=== PATIENT | male | born 1940 | race Caucasian/White ===

== ENCOUNTER 2024-05-27 | Outpatient (REF) | payer OTHER, SELFPAY ==
--- NOTE | ~2024-05-27 | XR_ITS ---
EXAMINATION: XR HIP 2 OR MORE VIEWS LEFT HISTORY: M25.559 - Pain in unspecified hip COMPARISON: There are no prior studies for comparison. FINDINGS: A single AP view of the pelvis and two views of the left hip are submitted. The patient is status post left total hip arthroplasty. The orthopedic elements are in anatomic alignment. There is no radiographic evidence of loosening. There is no fracture or dislocation. There are vascular calcifications. XR/XR hip LT min 2V IMPRESSION: Status post left total hip arthroplasty. Electronically signed by: Kp Sam MD 05/27/2024 01:25 PM EDT
--- OUTSIDE RECORDS SUMMARY | 2024-08-06 14:23 | XMS_ITS | Encounter Summary ---
Author Organization [facility] Address [address] [place] [address] Care Team Providers Care Bridge Mechanic Name Role Phone Ailyn Willams MD Primary Care Pr ovider Encounter Details Date Type Department Care Team (Late st Contact Info) Description 05/16/2021 Scanned Document [facility] [address] [facility] [address] [place] [address] Aixa Beckett, PAJatinC [address] [place] [address] [address] [place] [address] Social History Tobacco Use Types Packs/Day Years [...] on filedocumented in this encounter Care Teams Bridge Mechanic Relationship Specialty Start Date End Date Ailyn Willams MD [address] [place] [address] PCP - General 05/15/21 documented as of this encounter
== END 2024-05-27 00:01 | disposition home or self-care (01) ==
LOC: HO.HOSX
PROVIDERS: Visit Provider Physician Assistant
DX: M25.552 Pain in left hip (principal); Z96.642 Presence of left artificial hip joint
CPT/HCPCS: 73502; 99202

== ENCOUNTER 2024-05-27 09:11 | Outpatient (AMB) | payer OTHER, SELFPAY ==
--- OUTSIDE RECORDS SUMMARY | 2024-05-27 10:11 | XMS_ITS ---
Author Name [facility]ISP Organization Unknown Results Test Name/Text Value Interpretation Date Range Source GLUCOSE BLDC GLUCOMTR [facility] 267mg/dL Above high normal [id number] 70 - 199 [facility] GLUCOSE BLDC GLUCOMTR [facility] 372mg/dL Above high normal [id number] 70 - 199 [facility] OSMOLALITY SERPL 287mOsm/kg Normal [id number] 275 - 295 [facility] CREAT SERPL [facility] 1.1mg/dL Normal [id number] 0.7 - 1.3 [facility] CALCIUM SERPL [facility] 9.6mg/dL Normal [id number] 8.4 - 10 .2 [facility] SODIUM SERPL [facility] 135mmol/L Normal [id number] 135 - 145 [facility] ANION GAP SERPL [facility] 6mmol/L Normal [id number] 5 - 14 [facility] Glomerular filtration rate/1.73 sq M. predicted 66 Normal [id number] 60 - [facility] HCO3 SER [facility]NC 30mmol/L Normal [id number] 24 - 32 [facility] GLUCOSE SERPL [facility] 314mg/dL Above high normal [id number] 70 - 199 [facility] BUN SERPL [facility] 27mg/dL Above high normal [id number] 9 - 20 [facility] CHLORIDE SERPL [facility] 99mmol/L Normal [id number] 98 - 10 7 [facility] POTASSIUM SERPL [facility] 4.5mmol/L Normal [id number] 3.5 - 5.1 [facility] SODIUM SERPL [facility] 133mmol/L Below low normal [id number] 13 5 - 145 [facility] Troponin I SerPl HS-mCnc 18ng/L Normal [id number] 0 - 20 [facility] AMYLASE SERPL [facility] 30U/L Normal [id number] 29 - 103 [facility] LDH SERPL L TO P [facility]NC 143U/L Normal [id number] 125 - 220 [facility] AST SERPL [facility] 18U/L Normal [id number] 5 - 40 [facility] ALP SERPL-[facility]NC 61U/L Normal [id number] 34 - 104 [facility] ALT SERPL [facility] 10U/L Normal [id number] 7 - [facility] 1.3mg/dL Normal [id number] 0.7 - 1.3 [facility] CALCIUM SERPL [facility] 9.5mg/dL Normal [id number] 8.4 - 10 .2 [facility] SODIUM SERPL SC[facility] 130mmol/L Below low normal [id number] 13 5 - 145 [facility] ANION GAP SERPL [facility] 9mmol/L Normal [id number] 5 - 14 [facility] Glomerular filtration rate/1.73 sq M. predicted 54 Below low normal [id number] 60 - [facility] HCO3 SER SCNC 28mmol/L Normal [id number] 24 - 32 [facility] GLUCOSE SERPL MCNC 246mg/dL Above high normal [id number] 70 - 199 [facility] BUN SERPL [facility] 31mg/dL Above high normal [id number] 9 - 20 [facility] CHLORIDE SERPL [facility] 93mmol/L Below low normal [id number] 98 - 107 [facility] POTASSIUM SERPL [facility] 4.2mmol/L Normal [id number] 3.5 - 5.1 [facility] BILIRUB SERPL [facility] 0.5mg/dL Normal [id number] 0.3 - 1 [facility] BILIRUB DIRECT SERPL [facility] 0.1mg/dL Normal [id number] 0 - 0.2 [facility] PLATELET NO. BLD AUTO 207K/uL Normal [id number] 150 - 450 [facility] RBC NO. BLD AUTO 3.67M/uL Below low normal [id number] 4.7 - 6 [facility] NUCLEATED RBC 0% Normal [id number] 0 - 1 [facility] LYMPHOCYTES NO. BLD AUTO 0.3K/uL Below low normal [id number] 1 - 3.2 [facility] EOSINOPHIL NO. BLD AUTO 0K/uL Normal [id number] 0 - 0.5 [facility] MCH RBC QN AUTO 28.6pg Normal [id number] 25 - 33 [facility] MCHC RBC AUTO MCNC 32g/dL Normal [id number] 32 - 36 [facility] MONOCYTES NFR BLD AUTO 5.8% Normal [id number] 2 - 12 [facility] IMMATURE GRANULOCYTE, ABSOLUTE 0.02k/uL Normal [id number] - 0.1 [facility] LYMPHOCYTES NFR BLD AUTO 3.8% Below low normal [id number] 20 - 48 [facility] EOSINOPHIL NFR BLD AUTO 0% Normal 0 - 6 [facility] HGB BLD [facility] 10.5g/dL Below low normal [id number] 13.5 - 18 [facility] NEUTROPHILS NO. BLD AUTO 6.2K/uL Normal [id number] 1.8 - 7.8 [facility] WBC NO. BLD AUTO 6.9K/uL Normal 4 - 10.5 [facility] BASOPHILS NFR BLD AUTO 0.1% Normal 0 - 2 [facility] MONOCYTES NO. BLD AUTO 0.4K/uL Normal 0 - 0.8 [facility] MCV RBC AUTO 89.4fL Normal 78 - 100 [facility] NEUTROPHILS NFR BLD AUTO 90% Above high normal [id number] 44 - 74 [facility] IMMATURE GRANULOCYTE, PERCENT 0.3% Normal 0 - 1 [facility] BASOPHILS IN BLOOD BY AUTOMATED COUNT 0K/uL Normal 0 - 0.2 [facility] PMV BLD AUTO 10.1fL Normal [id number] 7.4 - 11.4 [facility] RDW RBC AUTO RTO 13.8% Normal 12.1 - 17. 7 [facility] HCT VFR BLD AUTO 32.8% Below low normal [id number] 40 - 54 [facility] LACTATE SERPL [facility]NC 1.6mmol/L Normal 0.5 - 2 [facility] LDH SERPL L TO P [facility]NC 137U/L Normal 125 - 220 [facility] AST SERPL [facility] 15U/L Normal 5 - 40 [facility] ALP SERPL-CCNC 75U/L Normal 34 - 104 [facility] ALT SERPL [facility] 10U/L Normal 7 - 52 [facility] BILIRUB SERPL [facility] 0.3mg/dL Normal 0.3 - 1 [facility] BILIRUB DIRECT SERPL [facility]NC 0.1mg/dL Normal 0 - 0.2 [facility] AMYLASE SERPL [facility] 47U/L Normal 29 - 103 [facility] LIPASE SERPL [facility] 19U/L Normal 11 - 82 [facility] CREAT SERPL [facility] 1.2mg/dL Normal 0.7 - 1.3 [facility] CALCIUM SERPL [facility] 9.8mg/dL Normal 8.4 - 10 .2 [facility] SODIUM SERPL SCNC 138mmol/L Normal 135 - 145 [facility] ANION GAP SERPL SC[facility] 7mmol/L Normal 5 - 14 [facility] Glomerular filtration rate/1.73 sq M. predicted 59 Below low normal 60 - [facility] HCO3 SER SCNC 30mmol/L Normal 24 - 32 [facility] GLUCOSE SERPL MCNC 222mg/dL Above high normal 70 - 199 [facility] BUN SERPL MCNC 24mg/dL Above high normal 9 - 20 [facility] CHLORIDE SERPL SCNC 101mmol/L Normal 98 - 10 7 [facility] POTASSIUM SERPL SCNC 4.3mmol/L Normal 3.5 - 5.1 [facility] PLATELET NO. BLD AUTO 320K/uL Normal 150 - 450 [facility] RBC NO. BLD AUTO 3.39M/uL Below low normal 4.7 - 6 [facility] NUCLEATED RBC 0% Normal 0 - 1 [facility] LYMPHOCYTES NO. BLD AUTO 1K/uL Normal 1 - 3.2 [facility] EOSINOPHIL NO. BLD AUTO 0.2K/uL Normal 0 - 0.5 [facility] MCH RBC QN AUTO 28.6pg Normal 25 - 33 [facility] MCHC RBC AUTO MCNC 31.4g/dL Below low normal 3 2 - 36 [facility] MONOCYTES NFR BLD AUTO 9.6% Normal 2 - 12 [facility] IMMATURE GRANULOCYTE, ABSOLUTE 0.02k/uL Normal [id number] - 0.1 [facility] LYMPHOCYTES NFR BLD AUTO 19.7% Below low normal 20 - 48 [facility] EOSINOPHIL NFR BLD AUTO 3.2% Normal 0 - 6 [facility] HGB BLD [facility] 9.7g/dL Below low normal 13.5 - 18 [facility] NEUTROPHILS NO. BLD AUTO 3.3K/uL Normal 1.8 - 7.8 [facility] WBC NO. BLD AUTO 5K/uL Normal 4 - 10.5 [facility] BASOPHILS NFR BLD AUTO 0.6% Normal 0 - 2 [facility] MONOCYTES NO. BLD AUTO 0.5K/uL Normal 0 - 0.8 [facility] MCV RBC AUTO 91.2fL Normal 78 - 100 [facility] NEUTR[facility]IL[facility] NFR BLD AUTO 66.5% Normal 44 - 74 [facility] IMMATURE GRANULOCYTE, PERCENT 0.4% Normal 0 - 1 [facility] BASOPHILS IN BLOOD BY AUTOMATED COUNT 0K/uL Normal 0 - 0.2 [facility] PMV BLD AUTO 9.8fL Normal 7.4 - 11.4 [facility] RDW RBC AUTO RTO 13.3% Normal 12.1 - 17. 7 [facility] HCT VFR BLD AUTO 30.9% Below low normal 40 - 54 [facility] Clarity Ur Refract.auto CLEAR Normal [id number] [facility] Prot Ur Ql Strip.auto NEGATIVE Normal [id number] - [facility] Glucose Ur Ql Strip.auto NEGATIVE Normal [id number] - [facility] Nitrite Ur Ql Strip.auto NEGATIVE Normal [id number] - [facility] Hgb Ur Ql Strip.auto NEGATIVE Normal [id number] - [facility] Ketones Ur Ql Strip.auto NEGATIVE Normal [id number] - [facility] Leukocyte esterase Ur Ql Strip.auto NEGATIVE Normal [id number] - [facility] Sp Gr Ur Strip.auto 1.01 Normal [id number] 1.005 - 1.03 [facility] pH Ur Strip.auto 6.5 Normal [id number] 4.5 - 8 [facility] LIPASE SERPL [facility]NC 9U/L Below low normal [id number] 11 - 82 [facility] LDH SERPL L TO P CCNC 138U/L Normal [id number] 125 - 220 [facility] AST SERPL [facility] 13U/L Normal [id number] 5 - 40 [facility] ALP SERPL-CCNC 62U/L Normal [id number] 34 - 104 [facility] ALT SERPL [facility] 6U/L Below low normal [id number] 7 - 5 2 [facility] CREAT SERPL MCNC 1.3mg/dL Normal [id number] 0.7 - 1.3 [facility] CALCIUM SERPL MCNC 9.7mg/dL Normal [id number] 8.4 - 10 .2 [facility] SODIUM SERPL SCNC 136mmol/L Normal [id number] 135 - 145 [facility] ANION GAP SERPL SCNC 7mmol/L Normal [id number] 5 - 14 [facility] Glomerular filtration rate/1.73 sq M. predicted 54 Below low normal [id number] 60 - [facility] HCO3 SER SCNC 27mmol/L Normal [id number] 24 - 32 [facility] GLUCOSE SERPL MCNC 269mg/dL Above high normal [id number] 70 - 199 [facility] BUN SERPL MCNC 24mg/dL Above high normal [id number] 9 - 20 [facility] CHLORIDE SERPL SCNC 102mmol/L Normal [id number] 98 - 10 7 [facility] POTASSIUM SERPL SCNC 4.4mmol/L Normal [id number] 3.5 - 5.1 [facility] AMYLASE SERPL CCNC 36U/L Normal [id number] 29 - 103 [facility] BILIRUB SERPL MCNC 0.4mg/dL Normal [id number] 0.3 - 1 [facility] BILIRUB DIRECT SERPL MCNC 0.1mg/dL Normal [id number] 0 - 0.2 [facility] LACTATE SERPL SCNC 1.3mmol/L Normal [id number] 0.5 - 2 [facility] PLATELET NO. BLD AUTO 228K/uL Normal [id number] 150 - 450 [facility] RBC NO. BLD AUTO 3.52M/uL Below low normal [id number] 4.7 - 6 [facility] NUCLEATED RBC 0% Normal [id number] 0 - 1 [facility] LYMPHOCYTES NO. BLD AUTO 1K/uL Normal [id number] 1 - 3.2 [facility] EOSINOPHIL NO. BLD AUTO 0.2K/uL Normal [id number] 0 - 0.5 [facility] MCH RBC QN AUTO 29.3pg Normal [id number] 25 - 33 [facility] MCHC RBC AUTO MCNC 31.7g/dL Below low normal [id number] 2 - 36 [facility] MONOCYTES NFR BLD AUTO 7.3% Normal [id number] 2 - 12 [facility] IMMATURE GRANULOCYTE, ABSOLUTE 0.02k/uL Normal [id number] - 0.1 [facility] LYMPHOCYTES NFR BLD AUTO 23.2% Normal [id number] 20 - 48 [facility] EOSINOPHIL NFR BLD AUTO 3.7% Normal [id number] 0 - 6 [facility] HGB BLD MCNC 10.3g/dL Below low normal [id number] 13.5 - 18 [facility] NEUTROPHILS NO. BLD AUTO 2.8K/uL Normal [id number] 1.8 - 7.8 [facility] WBC NO. BLD AUTO 4.3K/uL Normal [id number] 4 - 10.5 [facility] BASOPHILS NFR BLD AUTO 0.5% Normal [id number] 0 - 2 [facility] MONOCYTES NO. BLD AUTO 0.3K/uL Normal [id number] 0 - 0.8 [facility] MCV RBC AUTO 92.3fL Normal [id number] 78 - 100 [facility] NEUTROPHILS NFR BLD AUTO 64.8% Normal [id number] 44 - 74 [facility] IMMATURE GRANULOCYTE, PERCENT 0.5% Normal [id number] 0 - 1 [facility] BASOPHILS IN BLOOD BY AUTOMATED COUNT 0K/uL Normal [id number] 0 - 0.2 [facility] PMV BLD AUTO 10.9fL Normal [id number] 7.4 - 11.4 [facility] RDW RBC AUTO RTO 13.3% Normal [id number] 12.1 - 17. 7 [facility] HCT VFR BLD AUTO 32.5% Below low normal [id number] 40 - 54 [facility] SPECIMEN SOURCE XXX URINE CLEAN CATCH Normal [id number] [facility] History of Medication Use Medication Directions Dispensed Refills Start Date End Date Stat Buprenorphine HCl [address] inside cheek. active budesonide (PULMICORT) nebulizer solution 0.5 mg [Order 1 Start] Name: budesonide (PULMICORT) nebulizer solution 0.5 mg Signed Summary: 0.5 mg, Nebulization, 2 times daily, First dose on Fri11/05/23 at 2000Rinse mouth with water after use to reduce aftertaste and incidence of candidiasis. Do not swallow.?Therap eutic substitution for DULERA is bu 11/06/2023 active ipratropium-albuter ol (DUO-NEB) nebulizer solution 3 mL 3 mL, Nebulization, Once, On Fri11/05/23 at 1300, For 1 dose 11/05/2023 4 completed Buprenorphine HCl [address] inside cheek. active polyethylene glycol (miraLAx) powder Take 17 g by mouth daily. active sodium chloride 0.9% bolus (NS) 500 mL 500 mL, Intravenous, at 500 mL/hr, Once, On Fri11/05/23 at 1415, For 1 dose 11/05/2023 4 completed polyethylene glycol (MIRALAX) packet Take 17 g by mouth daily as needed (constipation). active latanoprost (XALATAN) 0.005 % ophthalmic solution 1 drop 1 drop, Left Eye, Every Night at Bedtime, First dose on Fri11/05/23 at 2200 11/06/2023 active guaiFENesin-dextrom ethorphan (ROBITUSSIN DM) 100-10 MG/5ML syrup Take 10 mL by mouth every 6 (six) hours for 7 days. 11/07/2023 4 active dextrose 50 % injection [Order 1 Start] Name: dextrose 50 % injection Signed Summary: 25 mL, Intravenous, As needed, low blood sugar, Starting on Shauna 11/06/23 at 1339Hypoglycemia defined as FSG<70mg/dl OR FSG <100mg/dl between 2200 and 0200??Use for responsive patients?WITH IV access AND unable to tolerate PO??Contact the p 11/06/2023 active dorzolamide (TRUSOPT) 2 % ophthalmic solution Place 1 drop into both eyes 2 (two) times a day. active acetaminophen (TYLENOL) tablet 975 mg 975 mg, Oral, 2 times daily, First dose on Fri11/05/23 at 1800 09/17/2023 active Acetaminophen (TYLENOL) 500 MG Pack Take 1,000 mg by mouth. active budesonide-formoter ol (SYMBICORT) 160-4.5 MCG/ACT inhaler Inhale 2 puffs into the lungs 2 (two) times a day. active polyethylene glycol (MIRALAX) packet Take 17 g by mouth daily as needed (constipation). active predniSONE (DELTASONE) tablet 20 mg Take 1 tablet (20 mg total) by mouth daily for 5 days. 11/04/2023 aborted dorzolamide (TRUSOPT) 2 % ophthalmic solution Place 1 drop into both eyes 2 (two) times a day. active ACIDOPHILUS LACTOBACILLUS PO Take by mouth. acti ve OMEprazole (PriLOSEC) 20 MG capsule Take 1 capsule (20 mg total) by mouth 2 (two) times a day. 07/25/2021 active aspirin EC 81 MG tablet Take 1 tablet (81 mg total) by mouth daily. active insulin Lispro (HumaLOG) injection 1-6 Units 1-6 Units, Subcutaneous, 3 times daily before meals, First dose on Fri11/06/23 at 1630LOW CORRECTIONAL DOSE?? ---??(Elderly or insulin sensitive patient or ??insulin TDD is less than 43 units )?Blood Glu 11/06/2023 active docusate sodium (COLACE) capsule 100 mg 100 mg, Oral, 2 times daily PRN, constipation, Starting on Fri11/05/23 at 1742 12/30/2015 4 active lactulose (CHRONULAC) 10 GM/15ML solution Take 15 mL by mouth daily as needed (constipation) for up to 3 days. 10/07/2023 4 active rosuvastatin (CRESTOR) tablet 10 mg Take 1 tablet (10 mg total) by mouth daily. active ondansetron (ZOFRAN) 4 MG tablet Take 1-2 tablets every 8 hours as needed for nausea and vomiting 05/15/2021 active enoxaparin (LOVENOX) syringe 40 mg 40 mg, Subcutaneous, Every 24 hours, First dose on Fri11/05/23 at 1745Enoxaparin NOT recommended if CrCl<30??Administe r in abdomen (at least 2 inches from navel) 11/05/2023 active mineral oil enema 1 enema 1 enema, Rectal, Once, On Fri10/07/23 at 1615, For 1 dose 10/07/2023 4 completed Docusate Sodium (DSS) 100 MG CAPS Take 100 mg by mouth 2 (two) times a day. 12/30/2015 active budesonide-formoter ol (SYMBICORT) 80-4.5 MCG/ACT inhaler Inhale 2 puffs 2 (two) times a day. active aspirin EC tablet 81 mg 81 mg, Oral, Daily, First dose on Fri11/06/23 at 0900 11/06/2023 active tiotropium (SPIRIVA) [address] 1 capsule (18 mcg total) into inhaler and inhale daily. active Buprenorphine (BUTRANS) 15 MCG/HR weekly patch Apply 750 mcg to cheek. active nirmatrelvir 150 mg-ritonavir 100 mg (Paxlovid, 150/100,) 10 x 150 MG & 10 x 100MG TBPK tablets in a dose pack (RENAL DOSE) Take 2 tablets by mouth every 12 (twelve) hours. 11/03/2023 active losartan (COZAAR) 50 MG tablet Take 50 mg by mouth daily. active dexamethasone (DECADRON) 6 MG tablet Take 1 tablet (6 mg total) by mouth daily for 7 days. 11/08/2023 4 active finasteride (PROSCAR) 5 MG tablet Take 5 mg by mouth. active predniSONE (DELTASONE) 50 MG tablet Take 1 tablet (50 mg total) by mouth daily. 09/04/2023 4 aborted Buprenorphine HCl [address] 900 mcg inside cheek 2 (two) times a day. active sodium chloride (OCEAN) 0.65 % nasal spray spray or apply 1 spray inside Nose as needed for congestion. active Problems Problem Status Onset Date Problem Type Date of Resolution Source Acute respiratory failure due to COVID-19 active 2023-11-05 ProblemAct [facility] Anemia, unspecified active EncounterDiagnosisAc t [facility] Rectal bleeding active 2019-02-22 ProblemAct [facility] COVID active EncounterDiagnosisAct [facility] oste[facility] of left knee active 2016-05-14 ProblemAct [facility] Cardiac murmur active 2023-11-05 ProblemAct [facility] Shoulder impingement, left active 2016-12-05 ProblemAct [facility] Degenerative lumbar spinal stenosis active 2021-08-09 ProblemAct [facility] Status post hip replacement, left active 2017-05-15 ProblemAct [facility] Opioid dependence in remission active 2023-11-05 ProblemAct [facility] Sepsis active 2021-05-20 ProblemAct [facility] Chronic respiratory failure with hypoxia active 2023-11-05 ProblemAct [facility] Enteritis active 2021-05-11 ProblemAct [facility] 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 active 2016-03-12 ProblemAct [facility] Simple chronic bronchitis active 2023-11-05 ProblemAct [facility] Stress fracture of left fibula active 2018-06-08 ProblemAct [facility] TIA (transient ischemic attack) active 2019-12-28 ProblemAct [facility] Type 2 diabetes mellitus, without long-term current use of insulin active 2019-12-28 ProblemAct [facility] Thumb fracture active 2015-12-25 ProblemAct [facility] Hyponatremia active 2023-11-05 ProblemAct [facility] Pain of left lower leg active 2018-06-08 ProblemAct [facility] S/P lumbar spinal fusion active 2016-03-12 ProblemAct [facility] Iron deficiency anemia active 2021-05-16 ProblemAct [facility] Nausea active 2021-05-16 ProblemAct [facility] Constipation due to opioid therapy active 2018-10-19 ProblemAct [facility] Shortness of breath active EncounterDiagnosisAc t [facility] Respiratory difficulty active EncounterDiagnosisAct [facility] Community acquired pneumonia of left lower lobe of lung active 2021-05-20 ProblemAct [facility] Acute generalized abdominal pain with fever active 2021-05-11 ProblemAct [facility] Immunizations Vaccine Date Source Lot Number Status Covid-19 (Crush on original products) Ready To Use 06/22/2021 [facility] [id number] completed Pneumococcal Conjugate PCV20 11/20/2021 [facility] [id number] completed Pfizer SARS-CoV-2 COVID-19, mRNA, LNP-S, preservative free 11/27/2020 [facility] [id number] completed Influenza Quad (High Dose Fl uzone) 0.7mL >65Yrs (HD-IIV4) 12/15/2019 [facility] [id number] completed Influenza Quad (Fluad) 0.5 m L >65Yrs (AIIV4) 11/27/2020 [facility] [id number] completed Covid-19 (Crush on original products) Dilution Required 03/03/2020 [facility] [id number] completed Covid-19 (Crush on original products) Dilution Required 03/28/2020 [facility] [id number] completed Influenza Trivalent (Fluzone High Dose) 0.7 mL (65yrs &>) 01/20/2017 [facility] [id number] completed Influenza Quad (Fluad) 0.5 m L >65Yrs (AIIV4) 10/29/2022 [facility] [id number] completed Encounters Encounter Type Encounter Reason Primary Diagnosis Location Date Ambulatory COVID-19 COVID-19 [facility] 11/11/2023 Ambulatory [facility] 11/06/2023 Inpatient COVID-19 COVID-19 [facility] 11/05/19 24 [facility] 11[facility]04[facility]19 24 Emergency Constipation, unspecified Constipation, unspecified [facility] 10/07/2023 Emergency Cervicalgia Cervicalgia [facility] 2023 Emergency Sciatica, left side Sciatica, left side [facility] 09/04/2023 Emergency Chronic obstructive pulmonary disease, unspecified Chronic obstructive pulmonary disease, unspecified [facility] 05/04/2023 Emergency Unspecified abdominal pain Unspecified abdominal pain [facility] 03/16/2023 Emergency Unspecified abdominal pain Unspecified abdominal pain [facility] 03/03/2023 Ambulatory Cardiac murmur, unspecified Cardiac murmur, unspecified [facility] 02/26/2023 Ambulatory Encounter for other specified aftercare Encounter for other specified aftercare [facility] 01/24/2023 Ambulatory Cutaneous abscess of abdominal wall Cutaneous abscess of abdominal wall [facility] 01/13/2023 Ambulatory Angiodysplasia o f stomach and duodenum without bleeding [facility] 06/14/2021 Ambulatory Nausea [facility] 05/15/2021 Care Team Organization Name Specialty Phone Email Start Date End Da te [facility] 12/22/2023 [facility] 12/19/2023 [facility] 03/03/2023 [facility] 03/02/2023 04/28/2024 [facility] 09/05/2022 [facility] 023 05/09/2022 [facility] 06/14/2021 04/28/2024 [facility] 05/15/2021 07/16/2021 [facility] 05/15/2021 05/15/2021
--- OUTSIDE RECORDS SUMMARY | 2024-05-27 10:11 | XMS_ITS | Clinical Summary ---
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 Terazosin Other Medium 08/23/2018 Medications acetaminophen 500 mg powder in packet Take 1,000 mg by mouth 2 (two) times a day. Active albuterol 2.5 mg /3 mL (0.083 %) nebulizer solution Take 3 mL (2.5 mg total) by nebulization Every 4 hours as needed. Active albuterol HFA (PROAIR HFA ; PROVENTIL HFA ; VENTOLIN HFA) 90 mcg/actuation inhaler Inhale 2 puffs by mouth 4 (four) times a day. Active aspirin 81 mg EC tablet Take 1 tablet (81 mg total) by mouth 1 (one) time each day. Active bimatoprost (LUMIGAN) 0.01 % ophthalmic drops Place 1 drop into the left eye every night at bedtime. Left eye only Active budesonide-form oteroL (SYMBICORT) 160-4.5 mcg/actuation inhaler Inhale 2 puffs by mouth 2 (two) times a day. Active buprenorphine HCL [address] 900 mcg into mouth between cheek and gum 2 (two) times a day. Max Daily Amount: 1,800 mcg Active dorzolamide (TRUSOPT) 2 % ophthalmic solution Place 1 drop into both eyes 2 (two) times a day. Active lidocaine 4 % patch Apply 1 patch topically. Active omeprazole (PriLOSEC) [address] capsule Take 1 capsule (20 mg total) by mouth 2 times daily as needed. Active rosuvastatin (CRESTOR) 10 mg tablet Take 1 tablet (10 mg total) by mouth 1 (one) time each day. Active sodium chloride (AYR) 0.65 % nasal drops spray or apply 1 spray inside Nose as needed for congestion. Active tamsulosin (FLOMAX) 0.4 mg 24 hr capsule Take 2 capsules (0.8 mg total) by mouth 1 (one) time each day. Active tiotropium (SPIRIVA) 18 mcg per inhalation capsule Place 1 capsule (18 mcg total) into inhaler and inhale daily. Active Active Problems Problem Noted Date Diagnosed Date Acute respiratory failure du e to COVID-19 ([facility] V24, [facility] V28) 11/05/2023 Cardiac murmur 11/05/2023 Chronic respiratory failure with hypoxia ([facility] [place], [facility] V28) 11/05/2023 Hyponatremia 11/05/2023 Opioid dependence in remission ([facility] V24, [facility] V28) 11/05/2023 Simple chronic bronchitis ([facility] [place]24, [facility] V28) 11/05/2023 Degenerative lumbar spinal stenosis 08/09/2021 Community acquired pneumonia of left lower lobe of lung 05/20/2021 Sepsis ([facility] V24, [facility] V28) 05/20/2021 Acute generalized abdominal pain with fever 02/2021 Enteritis 05/11/2021 TIA (transient ischemic attack) 12/28/2019 Type 2 diabetes mellitus, 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 03/12/2016 Thumb fracture 12/25/2015 Immunizations Name Administration Dates Next Due Influenza Quadravalent, 0.5ml (Fluad) 65yo and o lder 10/29/2022,11/27/2020 Influenza Quadravalent, 0.5m l (Fluzone High-dose) 65yo and older 12/15/2019 Influenza trivalent, 0.5mL ( Fluzone High-dose) 65yo and older 01/20/2017 Pfizer SARS-CoV-2 COVID-19, mRNA, LNP-S, preservative free 11/27/2020 Pneumococcal conjugate 20 va lent (Prevnar 20, PCV 20) 2mo and older 11/20/2021 Surgical History Surgery Date Site/Laterality Comments BACK SURGERY PROCEDURE:BACK SURGERY;COMMENT:x3 LUNG SURGERY PROCEDURE:LUNG SURGERY;COMMENT:for azbestos exposure TOTAL HIP ARTHROPLASTY 12/27/2015 Left PROCEDURE:TOTAL HIP ARTHROPLASTY;COMMENT:Procedur e: T0TAL LEFT HIP REPLACEMENT; Surgeon: Kp Andres MD; Location: [facility]; Service: Orthopedics; Laterality: Left; UPPER GASTROINTESTINAL ENDOSCOPY 03/17/2019 N/A PROCEDURE:UPPER GASTROINTESTINAL ENDOSCOPY;COMMENT:Procedure: UPPER ENDOSCOPY-EGD; Surgeon: Meghan Hurd MD; Location: [facility]; Service: Gastroenterology; Laterality: N/A; COLONOSCOPY 03/17/2019 N/A PROCEDURE:COLONOSCOPY;COMMENT :Procedure: COLONOSCOPY; Surgeon: Meghan Hurd MD; Location: [facility]; Service: Gastroenterology; Laterality: N/A; TONSILLECTOMY PROCEDURE:TONSILLECTOMY OTHER SURGICAL HISTORY PROCEDURE:ANAL FISSURECTOMY WRIST SURGERY Right PROCEDURE:WRIST SURGERY UPPER GASTROINTESTINAL ENDOSCOPY 07/16/2021 N/A PROCEDURE:UPPER GASTROINTESTINAL ENDOSCOPY;COMMENT:Procedure: UPPER ENDOSCOPY-EGD WITH APC / ERBE; Surgeon: Meghan Hurd MD; Location: [facility]; Service: Gastroenterology; Laterality: N/A; Medical History Medical History Date Comments COPD (chronic obstructive pu lmonary disease) (CMS/HCC V24, CMS/HCC V28) DX:COPD (chronic o bstructive pulmonary disease) (HCC) Hypertension DX:Hypertension High cholesterol DX:High cholest olga Glaucoma DX:Glaucoma Right hand pain DX:Right hand pa in TIA (transient ischemic attack) 12/2019 DX:TIA (transient ischemic attack) Asbestos exposure DX:Asbestos ex posure Prediabetes DX:Prediabetes Deviated septum DX:Deviated sept um KAW (hard of hearing) DX:KAW ([place]gu[place] rd of hearing);COMMENT:Uses Bilateral hearing aids Family History Medical History Relation Name Comments No Known Problems Brother 1 Piotr Alcohol abuse Brother 2 Kp-72 COPD Brother 2 Kp-72 Drug abuse Brother 2 Kp-72 Alcohol abuse Father 69 Cancer Father 69 Heart disease Mother 78 Heart disease Sister Cookie No Known Problems Son 1 Omkar Martin No Known Problems Son 2 Omkar Molina Relation Name Status Comments Brother 1 Piotr Alive Brother 2 Kp-72 Father 69 Mother 78 Sister Cookie Other Son 1 Omkar Guillen. Alive Son 2 Omkar Molina Alive Social History Tobacco Use Types Packs/Day Years Used Date Smoking Tobacco: Former Cigarettes 1 71 0 05/21/1949 - 05/16/2018 Smokeless Tobacco: Never Alcohol Use Standard Drinks/Week Comments No 0 (1 standard drink = 0.6 oz pur e alcohol) Sex and Gender Information Value Date Recorded Sex Assigned at Not on file Legal Sex Male 1:09 AM EST Gender Identity Not on file Sexual Orientation Not on file Obstetrics History Last Filed Vital Signs Vital Sign Reading Time Taken Comments Blood Pressure 138/70 11/11/2023 4:01 PM EDT Pulse 76 11/11/2023 11:24 AM EDT Temperature - - Respiratory Rate - - Oxygen Saturation - - Inhaled Oxygen Concentration - - Weight 68.9 kg (152 lb) 11/11/2023 11:24 AM EDT Height 177.8 cm (5' 10 ) 11/11/2023 11:24 AM EDT Body Mass Index 21.81 11/11/2023 11:24 AM EDT Plan of Treatment Health Maintenance Due Date Last Done Comments Diabetes: Annual Foot Exam 1950 Diabetes: Annual Retina Eye Exam 1950 DTaP,Tdap,and Td Vaccines (1 - Tdap) 1957 Zoster Vaccines (1 of 2) 1988 RSV Immunization Adult Patients (1 - 1-dose 75+ series) 2013 Cholesterol Screening (Lipid Panel) 01/16/2022 08/28/2016 Depression Screening 01/16/2022 Diabetes: Annual Urine Albumin-Creatinine Ratio (uACR) 01/16/2022 Diabetes: Blood Sugar Control Test (HGBA1C) 01/16/2022 08/27/2019, 08/27/2019 Falls Risk Assessment 01/16/2022 Social Influencers of Health Screening 01/16/2022 COVID-19 Vaccine ( season) 2023 06/22/2021, 11/27/2020, 03/28/2020, Additional history exists Influenza Vaccine (Season Ended) 2024 10/29/2022, 11/27/2020, 12/15/2019, Additional history exists Diabetes: Annual GFR (Glomerular Filtration Rate) 11/05/2024 11/06/2023, 11/06/2023, 11/06/2023, Additional history exists Pneumococcal Vaccine: 50+ Years Completed 11/20/2021 HIB Vaccines Aged Out No longer eligi ble based on patient's age to complete this topic HPV Vaccines Aged Out No longer eligi ble based on patient's age to complete this topic Hepatitis A Vaccines Aged Out No long er eligible based on patient's age to complete this topic Hepatitis B Vaccines Aged Out No long er eligible based on patient's age to complete this topic IPV Vaccines Aged Out No longer eligi ble based on patient's age to complete this topic MMR Vaccines Aged Out No longer eligi ble based on patient's age to complete this topic Meningococcal ACWY Vaccine Aged Out N o longer eligible based on patient's age to complete this topic Meningococcal B Vaccine Aged Out No l onger eligible based on patient's age to complete this topic RSV Immunization Patients Under 20 months Aged Out No longer eligible based on patient's age to complete this topic Varicella Vaccines Aged Out No longer eligible based on patient's age to complete this topic Procedures Procedure Name Priority Date/Time Associated Diagnosis Comments ANNUAL BMP BLOOD TEST Routine 11/06/2023 HEMOGLOBIN A1C Routine 08/27/2019 LIPID PANEL Routine 08/28/2016 from Last 3 Months or Most Recently Relevant to Health Maintenance Results * Annual BMP Blood Test (11/06/2023) [facility] Annual BMP Blood Test abstracted Result [facility] Provider HEALTH MAINTENANCE Final Result * (ABNORMAL) Hemoglobin A1c (08/27/2019) [facility] Hemoglobin A1C 7.0(A) <=5.7 % Blood Venous blood specimen / Unknown Result [facility] Provider LAB BLOOD ORDERABLES Lashonda l Result * (ABNORMAL) Lipid panel (08/28/2016) [facility] Triglycerides 63 <=150 mg/dL Cholesterol 143 0 - 200 mg/dL HDL 71(A) 32 - 70 mg/dL LDL Cholesterol 59 50 - 130 mg/dL Blood Venous blood specimen / Unknown Result [facility] Provider LAB BLOOD ORDERABLES Lashonda l Result from Last 3 Months or Most Recently Relevant to Health Maintenance 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
--- OUTSIDE RECORDS SUMMARY | 2024-05-27 10:11 | XMS_ITS | Clinical Summary ---
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 Terazosin Other (See Comments) Medium 08/23/2018 Medications Medication Sig Dispensed Refills Start Date End Date Status tiotropium (SPIRIVA) [address] 1 capsule (18 mcg total) into inhaler and inhale daily. 0 Active budesonide-formoter ol (SYMBICORT) 160-4.5 MCG/ACT inhaler Inhale 2 puffs into the lungs 2 (two) times a day. 0 Active bimatoprost (LUMIGAN) 0.01 % ophthalmic dropsIndications:Le ft eye Place 1 drop into the left eye every night at bedtime. Left eye only 0 Active polyethylene glycol (MIRALAX) packet Take 17 g by mouth daily as needed (constipation). 0 Active dorzolamide (TRUSOPT) 2 % ophthalmic solution Place 1 drop into both eyes 2 (two) times a day. 0 Active albuterol (PROVENTIL) (2.5 MG/3ML) 0.083% nebulizer solution Take 3 mL (2.5 mg total) by nebulization every 4 (four) hours as needed for wheezing. 0 Active omeprazole (PriLOSEC) 20 MG capsule Take 1 capsule (20 mg total) by mouth 2 (two) times a day as needed (acid reflux). 0 Active albuterol 108 (90 Base) MCG/ACT inhaler Inhale 2 puffs into the lungs 4 (four) times a day. 0 Active Acetaminophen 500 MG PACK Take 1,000 mg by mouth 2 (two) times a day. 0 Active sodium chloride (OCEAN) 0.65 % nasal spray spray or apply 1 spray inside Nose as needed for congestion. 0 Active Lidocaine 4 % PTCH Apply 1 patch topically. 0 Active Buprenorphine HCl 900 MCG FILMIndications:Chr onic Pain Place 900 mcg inside cheek 2 (two) times a day. 0 Active aspirin EC 81 MG tablet Take 1 tablet (81 mg total) by mouth daily. 0 Active rosuvastatin (CRESTOR) tablet 10 mg Take 1 tablet (10 mg total) by mouth daily. 0 Active tamsulosin (FLOMAX) 0.4 MG CAPS Take 2 capsules (0.8 mg total) by mouth daily. 0 04/09/2022 Active Active Problems Problem Noted Date Diagnosed Date Acute respiratory failure due to COVID-19 2023 Chronic respiratory failure with hypoxia 024 Simple chronic bronchitis 11/05/2023 Opioid dependence in remission 11/05/2023 Cardiac murmur 11/05/2023 Hyponatremia 11/05/2023 Degenerative lumbar spinal stenosis 08/09/2021 Sepsis 05/20/2021 Community acquired pneumonia of left lower lobe of lung 05/20/2021 Enteritis 05/11/2021 Acute generalized abdominal pain with fever 04/0 02/2021 TIA (transient ischemic attack) 12/28/2019 Type 2 diabetes mellitus, [facility] long[facility] current use of insulin 12/28/2019 Stress fracture of left fibula 06/08/2018 Pain of left lower leg 06/08/2018 Status post hip replacement, left 05/15/2017 Shoulder impingement, left 12/05/2016 Primary osteoarthritis of left knee 05/14/2016 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 03/12/2016 S/P lumbar spinal fusion 03/12/2016 Thumb fracture 12/25/2015 Resolved Problems Problem Noted Date Diagnosed Date Resolved Date Ileus 08/24/2018 08/25/2018 Ileitis, terminal, without complications 08/23/2018 08/25/2018 Nontraumatic rotator cuff tear, left 12/17/2016 05/15/2017 Chronic left shoulder pain 12/05/2016 0 05/15/2017 Chronic pain of left knee 05/14/2016 Displaced fracture of left femoral neck 01/11/2016 12/17/2016 Closed displaced fracture of distal phalanx of thumb 01/11/2016 05/15/2017 Hip fracture 12/25/2015 12/17/2016 Intractable pain 12/25/2015 05/15/2017 Immunizations Name Administration Dates Next Due Covid-19 (Pfizer) Dilution Required 03/28/2020,0 03/03/2020 Covid-19 (EternoGen) Ready To Use 06/22/2021 Influenza Quad (Fluad) 0.5 mL >65Yrs (AIIV4) ,11/27/2020 Influenza Quad (High Dose Fl uzone) 0.7mL >65Yrs (HD-IIV4) 12/15/2019 Influenza Trivalent (Fluzone High Dose) 0.7 mL (65yrs &>) 01/20/2017 Pneumococcal Conjugate PCV20 11/20/2021 Family History Medical History Relation Name Comments No Sig Med Hx Brother 1 Piotr Alcohol abuse Brother 2 Kp-72 COPD Brother 2 Kp-72 Drug abuse Brother 2 Kp-72 Alcohol abuse Father 69 Cancer Father 69 Heart disease Mother 78 Heart disease Sister Cookie No Sig Med Hx Son 1 Omkar Martin No Sig Med Hx Son 2 Omkar Molina Relation Name Status Comments Brother 1 Piotr Alive Brother 2 Kp-72 Father 69 Mother 78 Sister Cookie Other Son 1 Omkar Mindy. Alive Son 2 Omkar Atkinson. Alive Social History Tobacco Use Types Packs/Day Years Used Date Smoking Tobacco: Former Cigarettes 1 0 [birth year]/21/1947 - 05/16/2018 Cigars Smokeless Tobacco: Never Tobacco Cessation:Counseling Given: Not Answered Comments:started when 6 years, had a 16 year period where he stopped Alcohol Use Standard Drinks/Week Comments No 0 (1 standard drink = 0.6 oz pur e alcohol) Sex and Gender Information Value Date Recorded Sex Assigned at Male 06/08/2018 9:41 AM EDT Gender Identity Male 06/08/2018 9:41 AM EDT Sexual Orientation Straight 04/26/2019 3: 53 PM EDT Job Start Date Occupation Industry Not on file Not on file Not on file Last Filed Vital Signs Vital Sign Reading Time Taken Comments Blood Pressure 138/70 11/11/2023 4:01 PM EDT Pulse 76 11/11/2023 11:24 AM EDT Temperature 37 ??C (98.6 ??F) 11/07/2023 7:42 AM EDT Respiratory Rate 18 11/07/2023 7:42 AM EDT Oxygen Saturation 93% 11/11/2023 11:24 AM EDT Inhaled Oxygen Concentration - - Weight 68.9 kg (152 lb) 11/11/2023 11:24 AM EDT Height 177.8 cm (5' 10 ) 11/11/2023 11:24 AM EDT Body Mass Index 21.81 11/11/2023 11:24 AM EDT Plan of Treatment Health Maintenance Due Date Last Done Comments Diabetes: Microalbumin Test 1958 Hemoglobin A1C Due 11/10/2020 05/11/2020, 0 08/27/2019, 12/04/2016, Additional history exists Diabetes: Foot Exam 08/14/2021 08/14/2020 Diabetes: Eye Exam (No Retinopathy) 2022 2020 (Pt Reported - Need documentation) Depression Screening 07/30/2023 07/29/2022, 07/29/2022, 07/29/2022, Additional history exists Fall Risk Assessment 07/30/2023 07/29/2022, 07/29/2022, 07/29/2022, Additional history exists Preventative Health Evaluation 07/30/2023 07/29/2022, 07/29/2022, 05/17/2021, Additional history exists COVID-19 Vaccine ( season) 2023 02/18/2023, 11/14/2021, 06/22/2021, Additional history exists Influenza Vaccine (#1) 2023 , 10/22/2021, 11/27/2020, Additional history exists BMI Counseling 11/10/2024 11/11/2023, 10/12, 02/12/2023, Additional history exists DTap / Tdap / Td (3 - Td or Tdap) 12/18/2031 12/17/2021, 03/03/2013, 02/10/2007 Shingrix-Zoster Vaccine Completed 04/26/2020, 10/11 Tobacco Cessation Counseling Discontinued 05/17/2021, 05/16/2020 Pneumococcal Vaccine Completed 11/20/2021, 12/29/2014, 12/11/2009, Additional history exists RSV Adult > 60+ Yrs or Completed 01/17/2023 Hepatitis B Vaccines Aged Out No long er eligible based on patient's age to complete this topic RSV Ped < 20 months Aged Out No longe r eligible based on patient's age to complete this topic Medical Devices Implanted Type Area Head Waiter/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 Device Identifier Shelf Expiration Date Model / Serial / Lot Stem Accolade Ii 5 127d Femoral [facility] - [id number] - [id number] Implanted:Qty: 1 on 12/27/2015 by Kp Andres MD at [facility] Location [facility] 09/06/2020 [id number] / / [id number] Head Femoral V40 Lfit Cocr -3mm Offset Taper Od26mm Hip [facility] - [id number] - [id number] Implanted:Qty: 1 on 12/27/2015 [facility] 12/20/2019 [id number] / / [id number] Head Uhr [place] 51mm 26mm Cocr Uhmwpe Bipol Hip [facility] - [id number] - [id number] Implanted:Qty: 1 on 12/27/2015 [facility] 10/05/2019 [id number] / / [id number] Advance Directives For more information, please contact: [phone] Documents on File Type Date Recorded Patient Management Analyst Expl anation Advance Directive and Living Will 03/16/2019 9:34 AM Latest Code Status on File Code Status Date Activated Date Inactivated Comments Full Code 11/05/2023 5:42 PM 11/07/2023 5:46 PM This code status was ascertained in the following way: discussion with patient . Code Status History Code Status Date Activated Date Inactivated Comments Full Code 07/16/2021 9:24 AM 07/16/2021 4:23 PM This co de status was ascertained in the following way: discussion with patient . Full Code 05/20/2021 2:02 PM 05/24/2021 5:49 PM This code status was ascertained in the following way: discussion with patient . Full Code 05/11/2021 12:55 PM 05/12/2021 3:59 PM This c ode status was ascertained in the following way: discussion with patient . Full Code 03/17/2019 9:13 AM 03/17/2019 3:53 PM This co de status was ascertained in the following way: discussion with patient . 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
--- OUTSIDE RECORDS SUMMARY | 2024-05-27 10:11 | XMS_ITS | Clinical Summary ---
Author Organization [facility] Address [address] [place] [address] Care Team Providers Care Licensed Practical Nurse Instructor Name Role Phone [facility] Primary Care Pr ovider Allergies Active Allergy Reactions Criticality Noted Date Comments Lubiprostone Other (See Comments) 10/22/2018 Dizzy off balance. Atorvastatin Unknown/Patient and Family Unable to Define Medium 09/18/2016 Gabapentin Unknown/Patient and Family Unable to Define Medium 08/23/2018 Latanoprost Unknown/Patient and Family Unable to Define Medium 08/23/2018 Terazosin Unknown/Patient and Family Unable to Define Medium 08/23/2018 Medications tiotropium (SPIRIVA) [address] into inhaler and inhale. Active dorzolamide (TRUSOPT) 2 % ophthalmic solution 1 drop 3 (three) times a day. Active bimatoprost (LUMIGAN) 0.01 % ophthalmic drops 1 drop nightly. Active polyethylene glycol (miraLAx) powder Take 17 g by mouth daily. Active ALBUTEROL SULFATE HFA IN Inhale. Activ e budesonide-formo terol (SYMBICORT) 80-4.5 MCG/ACT inhaler Inhale 2 puffs 2 (two) times a day. Active Buprenorphine (BUTRANS) 15 MCG/HR weekly patch Apply 750 mcg to cheek. Active finasteride (PROSCAR) 5 MG tablet Take 5 mg by mouth. Active Acetaminophen (TYLENOL) 500 MG Pack Take 1,000 mg by mouth. Active lidocaine (PROZENA) 4 % patch Apply 1 patch topically. Active losartan (COZAAR) 50 MG tablet Take 50 mg by mouth daily. Active docusate sodium (COLACE) 100 MG capsule Take 100 mg by mouth 2 (two) times a day. Active ondansetron (ZOFRAN) 4 MG tabletIndication s:Nausea Take 1-2 tablets every 8 hours as needed for nausea and vomiting 90 tablet 1 2 Active LACTOBACILLUS PO Take by mouth. Active OMEprazole (PriLOSEC) 20 MG capsuleIndicatio ns:Gastric AVM,Iron deficiency anemia, unspecified iron deficiency anemia type,Nausea Take 1 capsule (20 mg total) by mouth 2 (two) times a day. 60 capsule 3 2 Active cephalexin (KEFLEX) 500 MG capsuleIndicatio ns:Abscess of skin of abdomen Take 1 capsule (500 mg total) by mouth 4 (four) times a day. 28 capsule 3 Active Active Problems Problem Noted Date Diagnosed Date Nausea 05/16/2021 Assessment & Plan (05/16/2021 7:43 AM EDT): Continue omeprazole 40 mg daily Zofran as needed Will schedule EGD for further evaluation An endoscopy will be scheduled based on current indication. The indications, prep, alternatives and the procedure were thoroughly explained. There is no contraindication to endoscopy. All questions were answered. The potential risks including but not limited to bleeding, infection, and perforation were also explained. 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 Hurd Rectal bleeding 02/22/2019 Assessment & Plan (02/22/2019 11:21 AM EST): No sign of active bleeding or cause of bleed Could be due to straining and constipation. Lots of anal scar tissue. Will send for CBC. If bleeding cont, contact office. Consider repeat colon Constipation due to opioid therapy 10/19/2018 Assessment & Plan (05/16/2021 7:38 AM EDT): Continue stool softener and miralax/dulcolax as needed Continue IBgard Discussed patients diet and suggested changes, such as, increasing fiber with more fruits, veggies, or supplements. Pt should also increase fluid intake to at least 60 oz of water or water based drinks daily. We discussed different pharmaceutical options and their risks, benefits, and how to correctly take them and stay consistent. Assessment & Plan (02/22/2019 11:21 AM EST): Cont Miralax Did not do well with AMitiza or Symproic Assessment & Plan (10/19/2018 1:59 PM EDT): Pt was given samples of Amitiza 24 mcg BID to try for the next 2 weeks If this does not work, he will picket labor union sample of Symproic in [place] Family History Relation Name Status Comments Father Mother Social History Tobacco Use Types Packs/Day Years Used Date Smoking Tobacco: Former Smokeless Tobacco: Never Tobacco Cessation:Counseling Given: Not Answered Alcohol Use Standard Drinks/Week Comments Never 0 (1 standard drink = 0.6 oz pur e alcohol) Sex and Gender Information Value Date Recorded Sex Assigned at Not on file Legal Sex Male 2:53 PM EDT Gender Identity Not on file Sexual Orientation Not on file Last Filed Vital Signs Vital Sign Reading Time Taken Comments Blood Pressure 157/81 01/24/2023 1:08 PM EST Pulse 72 01/24/2023 1:08 PM EST Temperature 36.7 ??C (98.1 ??F) 01/24/2023 1:08 PM ES T Respiratory Rate - - Oxygen Saturation 97% 01/24/2023 1:08 PM EST Inhaled Oxygen Concentration - - Weight 72.6 kg (160 lb) 01/24/2023 1:08 PM EST Height 167.6 cm (5' 6 ) 01/24/2023 1:08 PM EST Body Mass Index 25.82 01/24/2023 1:08 PM EST Plan of Treatment Health Maintenance Due Date Last Done Comments DTaP/Tdap/Td Vaccines (1 - Tdap) 1957 Pneumococcal Vaccines 50+ (1 of 1 - PCV) 1988 Zoster (Shingles) Vaccine (1 of 2) 1988 RSV Vaccine 60 years and older and Patients (1 - 1-dose 75+ series) 2013 Influenza Vaccine 09/11/2023 10/29/2022, , 11/27/2020, Additional history exists COVID-19 Vaccine ( season) 2023 02/18/2023, 11/14/2021, 06/22/2021, Additional history exists Hemoglobin A1C Discontinued 08/27/2019 Hepatitis B Vaccines Aged Out No long er eligible based on patient's age to complete this topic Insurance [facility] MEDICARE [facility]IC[facility] Member Subscriber Plan / Payer (Ef fective 2021-Present) Name:Omkar Viveros Relation to Subscriber:Self Name:Omkar Viveros Payer ID:[id number] Group ID:Not on file Type:Not on file Address: [facility] [employer] [id number] [place] [id number] [facility] Member Subscriber Plan / Payer (Ef fective 2021-Present) Name:Felice, Omkar Relation to Subscriber:Self Name:Omkar Viveros Payer ID:[id number] Group ID:Not on file Type:Not on file Address: [facility] [employer] [id number] [place] [id number] [facility] MEDICARE Care Teams Licensed Practical Nurse Instructor Relationship Specialty Start Date End Date Ailyn Willams MD [address] [place] [address] [facility] - General 05/15/21
--- OUTSIDE RECORDS SUMMARY | 2024-05-27 10:11 | XMS_ITS | Encounter Summary ---
Author Organization [facility] Address [address] [place] [address] Care Team Providers Care Slubber Operator Name Role Phone Ailyn Willams MD Primary Care Pr ovider Encounter Details Date Type Department Care Team (Late st Contact Info) Description 05/16/2021 Scanned Document [facility] [address] [facility] [address] [place] [phone] Meghan Hurd MD [address] [place], [place] [id number] Social History Tobacco Use Types Packs/Day Years Used Date Smoking Tobacco: Former Smokeless Tobacco: Never Alcohol Use Standard Drinks/Week Comments Not Currently 0 (1 standard drink = 0.6 oz pur e alcohol) Sex and Gender Information Value Date Recorded Sex Assigned at Not on file Legal Sex Male 2:53 PM EDT Gender Identity Not on file Sexual Orientation Not on file documented as of this encounter Plan of Treatment Not on file documented as of this encounter Visit Diagnoses Not on filedocumented in this encounter Care Teams Slubber Operator Relationship Specialty Start Date End Date Ailyn Willams MD [address] [place] [address] PCP - General 05/15/21 documented as of this encounter
--- OUTSIDE RECORDS SUMMARY | 2024-05-27 10:11 | XMS_ITS | Encounter Summary ---
Author Organization [facility] Address [address] [place] [address] Care Team Providers Care Event Representative Name Role Phone Ailyn Willams MD Primary Care Pr ovider Encounter Details Date Type Department Care Team (Late st Contact Info) Description 05/16/2021 Scanned Document [facility] [address] [facility] [address] [place] [address] Aixa Beckett, PAJatinC [address] [place] [address] [place] [address] Social History Tobacco Use Types Packs/Day Years [...] on filedocumented in this encounter Care Teams Event Representative Relationship Specialty Start Date End Date Ailyn Willams MD [address] [place] [address] PCP - General 05/15/21 documented as of this encounter
--- OUTSIDE RECORDS SUMMARY | 2024-05-27 10:12 | XMS_ITS | Clinical Summary ---
Author Organization [facility] Address [address] [place] [address] Care Team Providers Care Hardening Machine Operator Helper Name Role Phone Sidney Gutierres Primary Care Provider Unavailabl e Immunizations Name Administration Dates Next Due Fluzone Trivalent High Dose (65+ years) 01/21/20 17 Social History Tobacco Use Types Packs/Day Years Used Date Smoking Tobacco: Never Assessed Sex and Gender Information Value Date Recorded Sex Assigned at Not on file Legal Sex Male 10:03 AM EST Gender Identity Not on file Sexual Orientation Not on file Plan of Treatment Health Maintenance Due Date Last Done Comments Depression: Screening Annual ly using PHQ-2/9 in Adults 18 yrs or above (or HM Modifier)([facility]) 1940 [facility] Screening Reminder: Lexus castillo for all adults ([facility]) 1956 Tobacco Smoking Cessation: i n Adults excluding Women: Behavioral and Pharmacotherapy Interventions ([facility]) 1956 DTaP/Tdap/Td Vaccines ([facility]) (1 - Tdap) 1957 Lipid Screening: Every 5 yrs for Men aged 35+ (or HM Modifier) ([facility]) 1974 Pneumococcal Vaccination Scr eening: Patients 50+ yrs of age ([facility]) (1 of 1 - PCV) 1988 Zoster/Shingles Vaccine Seri es Screening: Adults aged 18+ yrs (or HM Modifiers)([facility]) (1 of 2) 1988 RSV Vaccines (1 - 1-dose 75+ series) 2013 COVID-19 Vaccine Screening: Initial Series and Booster Status ([facility]) ( - 2023- season) 2023 Flu Vaccination: Ages 65+: Y early High Dose Recommended (or Modifier)([facility]) 09/10/2024 01/20/2017 Medical Devices Not on file Care Teams Hardening Machine Operator Helper Relationship Specialty Start Date End Date Sidney Gutierres PCP - Painting Manager 01/20/17
--- OUTSIDE RECORDS SUMMARY | 2024-05-27 10:12 | XMS_ITS | Encounter Summary ---
Author Organization [facility] Address [address] [place] [address] Care Team Providers Care Hopper Feeder Name Role Phone Ailyn Willams MD Primary Care Pr ovider Encounter Details Date Type Department Care Team (Late st Contact Info) Description 07/23/2021 Scanned Document [facility] [address] [facility] [address] [place] [phone] Meghan Hurd MD [address] [place], [place] [phone] Social History Tobacco Use Types Packs/Day Years Used Date Smoking Tobacco: Former Smokeless Tobacco: Never Alcohol Use Standard Drinks/Week Comments Never 0 [...] on filedocumented in this encounter Care Teams Hopper Feeder Relationship Specialty Start Date End Date Ailyn Willams MD [address] [place] [address] PCP - General 05/15/21 documented as of this encounter
--- NOTE | 2024-05-27 10:32 | MHC.OFFVIS ---
Intake Visit Reasons: New Patient - Left Hip Pain Intake Note: Omkar is a 83 year old male who presents today as a new patient for a evaluation of his left hip pain. Patient reports that he had history of Left Hip Replacement s/p Fall with Dr. Andres in [place]. Patient reports since then he has had continued pain in the groin that worsens with activity. Allergies atorvastatin [From Lipitor] Allergy (Verified 05/27/24 10:36) Unknown HPI HPI New Patient - Left Hip Pain: Details: Patient is an 84-year-old male who presents to the office today for evaluation of pelvic pain. He notes that the pain is located in the groin but points to the anterior aspect of his pelvis. He has a history of a left hip hemiarthroplasty with Dr. Andres in [place]. It is unclear when the procedure was done but the patient estimates roughly 10 years ago. He reports that his prior physician has retired and he is looking to establish care elsewhere. Review of Systems Const All systems reviewed & are unremarkable except as noted in HPI and below Physical Exam Const General: cooperative, healthy appearing and no acute distress Resp Effort & Inspection: normal respiratory effort and able to speak in complete sentences Cardio Rate: regular rate Peripheral pulses: Peripheral pulses 2+ throughout Skin Lesions: no lesions Rashes: no rashes Extrem Other: Left hip able to perform full extension and flexion. Good internal external rotation with no report of groin pain. Able to perform straight leg raise. Able to dorsiflex and plantar flex. NVI. Assessment & Plan Assessment & Plan (1) History of left hip hemiarthroplasty: Code(s): Z96.642 - Presence of left artificial hip joint Category: Surgical Plan On the office today, I reviewed the x-ray images with Dr. Diallo who was available but did not see the patient with me. Patient is not experiencing any groin pain or evidence of hip origination with his pain. The pain is primarily located along the anterior aspect of the pelvis. There is no orthopedic intervention warranted at this time. X-rays were obtained in the office today and reveal intact left hip hemiarthroplasty with satisfactory alignment. No acute fracture or dislocation is noted. No hardware loosening evident. He will follow up p.r.n., sooner if needed. Orders: Orders XR hip LT min 2V Today M25.559 - Pain in unspecified hip Coding Level of Care Code New Pt Level 3 (56740) Diagnoses History of left hip hemiarthroplasty Z96.642
== END 2024-05-27 11:12 | disposition home or self-care (01) ==
LOC: HO.HOS 09:12
PROVIDERS: PCP Internal Medicine; Visit Provider Physician Assistant
DX: Z47.1 Aftercare following joint replacement surgery (principal); Z96.642 Presence of left artificial hip joint
CPT/HCPCS: 99203

== ENCOUNTER → 2024-05-27 09:13 | Outpatient (BNV) | payer OTHER, SELFPAY | PROVIDERS: Visit Provider Radiology Diagnostic Radiology | DX: Z96.642 Presence of left artificial hip joint (principal) | CPT/HCPCS: 73502 ==